=== PATIENT | male | born 1945 | race Caucasian/White ===

== ENCOUNTER → 2025-06-06 | Outpatient (CLI) | payer OTHER, SELFPAY ==
--- NOTE | 2025-06-06 | XR_ITS ---
Examination: Fingers, left hand 3 views Technique: AP, oblique, lateral views left hand 3 views. Exam date and time: June 06, 2025, 0728 hours INDICATIONS: Difficulty bending left second third and fourth digits post injury 1 year ago FINDINGS: No fracture or dislocation Mild diffuse narrowing joints of the wrist and hand No erosive or other significant arthritic change IMPRESSION: Mild diffuse narrowing joints of the wrist and hand No erosive or other significant arthritic change
== END | disposition home or self-care (01) ==
LOC: SDIM 06:37
PROVIDERS: PCP Family Medicine; Referring Provider Family Medicine; Visit Provider Family Medicine
DX: M25.842 Other specified joint disorders, left hand (principal); M25.832 Other specified joint disorders, left wrist
CPT/HCPCS: 73140